=== PATIENT | female | born 1990 | race Caucasian/White ===

== ENCOUNTER 2018-02-21 12:33 | Emergency (ER) | payer SELFPAY ==
[~2018-02-21] VITALS: Ht 162.6 cm; Wt 77.1 kg
[2018-02-21] MEDS ORDERED: MORPHINE SULFATE 4 MG/ML SYR IV STA (12:50)
[2018-02-21] MEDS ORDERED: SODIUM CHLORIDE 0.9% 1000ML 1,000 ML IV STA (12:50)
[2018-02-21] MEDS ORDERED: ONDANSETRON HCL 4 MG ORAL DISINTEGRATING TAB PO ONE (13:00)
[2018-02-21 13:02] LABS: BASOPHILS # (AUTO) 0.1 (0.0-0.1); BASOPHILS % 0.6 % (0.0-1.0); EOSINOPHILS # (AUTO) 0.2 (0.0-0.4); EOSINOPHILS % 1.9 % (0.0-6.0); HEMATOCRIT 41.3 % (34.2-44.1); HEMOGLOBIN 14.4 g/dL (12.0-16.0); LYMPHOCYTES # (AUTO) 2.1 (1.0-3.2); LYMPHOCYTES % 25.5 % (18.0-39.1); MEAN CORPUSCULAR HEMOGLOBIN 30.2 pg (28-32); MEAN CORPUSCULAR HGB CONC 34.9 g/dL (31-35); MEAN CORPUSCULAR VOLUME 86.6 fL (81-99); MONOCYTES # (AUTO) 0.9 (0.2-0.8); MONOCYTES % 10.4 % (4.4-11.3); NEUTROPHILS # (AUTO) 5.1 (2.1-6.9); NEUTROPHILS % 61.2 % (38.7-80.0); PLATELET COUNT 232 x10e3/uL (140-360); RED BLOOD COUNT 4.77 x10e6/uL (3.6-5.1); RED CELL DISTRIBUTION WIDTH 12.8 % (11.7-14.4)
[2018-02-21] MEDS ORDERED: MORPHINE SULFATE 2 MG/ML SYR ONE (13:06)
[2018-02-21 13:10] LABS: INR 1.1; PROTHROMBIN TIME 13.4 seconds (11.9-14.5)
[2018-02-21 13:11] LABS: PARTIAL THROMBOPLASTIN TIME 28.9 seconds (23.8-35.5)
[2018-02-21 13:20] LABS: ALANINE AMINOTRANSFERASE 9 IU/L (0-55); ALBUMIN 4.2 g/dL (3.5-5.0); ALBUMIN/GLOBULIN RATIO 1.2 (0.8-2.0); ALKALINE PHOSPHATASE 78 IU/L (40-150); AMYLASE 32 U/L (25-125); ANION GAP 14.1 mmol/L (8-16); BLOOD UREA NITROGEN 8 mg/dL (7-26); BUN/CREATININE RATIO 10 (6-25); CALCIUM 9.8 mg/dL (8.4-10.2); CARBON DIOXIDE 24 mmol/L (22-29); CHLORIDE 105 mmol/L (98-107); CREATININE, SERUM 0.83 mg/dL (0.57-1.11); EST GLOMERULAR FILTRATION RATE > 60 ML/MIN (60-); GLUCOSE 92 mg/dL (74-118); LIPASE 14 U/L (8-78); POTASSIUM 4.1 mmol/L (3.5-5.1); SODIUM 139 mmol/L (136-145)
[2018-02-21 13:26] LABS: HCG,QUANTITATIVE < 1.20 mIU/mL (0-10)
[2018-02-21] MEDS ORDERED: HYDROMORPHONE 1MG/1ML INJ IV STA (13:40)
[2018-02-21] MEDS ORDERED: HYDROMORPHONE 2MG/ML INJ IV ONE (13:45)
--- NOTE | 2018-02-21 15:03 | Diagnostic Imaging Report ---
EXAM: Transabdominal and Transvaginal Pelvic Ultrasound with Duplex INDICATION: Left lower quadrant pain. COMPARISON: None TECHNIQUE: Grayscale transverse and sagittal transabdominal and transvaginal images were obtained of the pelvis. Transvaginal imaging was medically necessary to better evaluate the endometrium and the adnexa. The ovaries were examined with grayscale, color Doppler, and spectral waveform analysis. CLINICAL HISTORY: 27 year old A2; last menstrual period: 01/16/2018. FINDINGS: Uterus Orientation: Normal Size: 7.1 x 3.3 x 5.1 cm, normal Mass: None Cervix: Nabothian cyst measuring 0.8 cm. Endometrium: Thickness: 0.6 cm, Normal. Appearance: Homogeneous echotexture without focal thickening. Right ovary: Size: 2.7 x 2 x 1.9 cm Mass/Cyst: None Vascularity: Normal venous and arterial color flow and waveforms. Left ovary: Size: 3 x 1.7 x 1.4 cm Mass/Cyst: None Vascularity: Normal venous and arterial color flow and waveforms. Adnexa: Normal Cul-de-sac: No free fluid IMPRESSION: 1. Unremarkable pelvic ultrasound. 2. If the test is positive, differentials include early , ectopic , and miscarriage. Recommend correlation with serial beta hCG and if indicated short-term follow-up ultrasound. Signed by: Dr. Idris Roberson MD on 02/21/2018 3:00 PM
[2018-02-21] MEDS ORDERED: KETOROLAC TROMETHAMINE 30 MG/ML VIAL IV STA (15:07)
[2018-02-21] MEDS ORDERED: DIATRIZOATE MEGL/DIATRIZOA SOD 30 ML BTL PO ONE (15:13)
[2018-02-21] MEDS ORDERED: HYDROMORPHONE 1MG/1ML INJ IV PRN (16:45)
[2018-02-21 16:57] LABS: CLARITY,URINE SL CLOUDY (CLEAR); COLOR,URINE STRAW (YELLOW); LEUKOCYTE ESTERASE ,URINE NEGATIVE (NEGATIVE); NITRITE,URINE NEGATIVE (NEGATIVE); PROTEIN,URINE DIPSTICK 1+ (NEGATIVE)
[2018-02-21 16:58] LABS: BILIRUBIN,URINE 2+ (NEGATIVE); KETONES,URINE 2+ (NEGATIVE); URINE UROBILINOGEN 1 mg/dL (0.2 - 1)
[2018-02-21] MEDS ORDERED: HYDROMORPHONE 2MG/ML INJ IV PRN (17:00)
--- NOTE | 2018-02-21 17:02 | Diagnostic Imaging Report ---
EXAM: CT Abdomen and Pelvis WITHOUT contrast INDICATION: \S\LLQ PAIN \[id number] \S\[id number] \S\N COMPARISON: Pelvic ultrasound performed on the same date. TECHNIQUE: Abdomen and pelvis were scanned utilizing a multidetector helical scanner from the lung base to the pubic symphysis without administration of IV contrast. Absence of intravenous contrast decreases sensitivity for detection of focal lesions and vascular pathology. Coronal and sagittal reformations were obtained. Renal stone protocol was performed. IV CONTRAST: None ORAL CONTRAST: Water COMPLICATIONS: None RADIATION DOSE: Total DLP: 412.50 mGy*cm Estimated effective dose: (DLP x 0.015 x size factor) mSv CTDIvol has been reviewed. It is below the limits set by the Radiation Protocol Committee (RPC). FINDINGS: LINES and TUBES: None. LOWER THORAX: Unremarkable HEPATOBILIARY: Hypodensity along the falciform ligament is probably focal fat deposition. Otherwise, unenhanced liver is unremarkable. No biliary ductal dilation. GALLBLADDER: No radio-opaque stones or sludge. No wall thickening. SPLEEN: No splenomegaly. PANCREAS: No focal masses or ductal dilatation. ADRENALS: No adrenal nodules KIDNEYS/URETERS: No hydronephrosis. No cystic or solid mass lesions. No stones. GI TRACT: No abnormal distention, wall thickening, or evidence of bowel obstruction. Appendix is normal. PELVIC ORGANS/BLADDER: Unremarkable. Tampon in place. Pelvic phleboliths. Bladder is under distended, limiting evaluation. LYMPH NODES: No lymphadenopathy. VESSELS: Unremarkable. PERITONEUM / RETROPERITONEUM: No free air or fluid. BONES: Unremarkable. SOFT TISSUES: Unremarkable. IMPRESSION: 1. No nephrolithiasis or evidence of obstructive urolithiasis. Signed by: Dr. Idris Roberson MD on 02/21/2018 4:59 PM
[2018-02-21 17:11] LABS: BACTERIA,URINE FEW /HPF; EPITHELIAL CELLS,URINE RARE /LPF; WBC,URINE (MAN) 0-5 /HPF (0-5)
[2018-02-21 17:12] LABS: AMORPHOUS SEDIMENT,URINE FEW (FEW); MUCUS,URINE FEW (RARE)
[2018-02-21 18:52] VITALS: BP 120/80
== END 2018-02-21 18:40 | disposition home or self-care (01) ==
LOC: ER 12:33
DX: R10.32 Left lower quadrant pain (principal)
CPT/HCPCS: 36415; 74176; 76830; 80053; 81001; 82150; 83690; 84702; 85025; 85610; 85730; 93976; 99284; J1170; J1885; J2270; J7030

== ENCOUNTER 2018-05-01 09:04 | Emergency (ER) | payer SELFPAY ==
[~2018-05-01] VITALS: Ht 162.6 cm; Wt 79.4 kg
[2018-05-01 10:01] LABS: CLARITY,URINE SL CLOUDY (CLEAR); COLOR,URINE YELLOW (YELLOW)
[2018-05-01 10:02] LABS: LEUKOCYTE ESTERASE ,URINE NEGATIVE (NEGATIVE); NITRITE,URINE NEGATIVE (NEGATIVE); PROTEIN,URINE DIPSTICK 2+ (NEGATIVE); URINE UROBILINOGEN 1 mg/dL (0.2 - 1)
[2018-05-01 10:03] LABS: BILIRUBIN,URINE 2+ (NEGATIVE); KETONES,URINE 2+ (NEGATIVE)
[2018-05-01 10:20] LABS: BACTERIA,URINE MODERATE /HPF; EPITHELIAL CELLS,URINE MODERATE /LPF; RBC,URINE >50 /HPF (0-5)
[2018-05-01 10:21] LABS: MUCUS,URINE FEW (RARE)
[2018-05-01 11:38] LABS: BASOPHILS % 0.4 % (0.0-1.0); EOSINOPHILS # (AUTO) 0.1 (0.0-0.4); EOSINOPHILS % 1.5 % (0.0-6.0); HEMATOCRIT 36.7 % (34.2-44.1); LYMPHOCYTES # (AUTO) 1.5 (1.0-3.2); LYMPHOCYTES % 16.1 % (18.0-39.1); MEAN CORPUSCULAR HEMOGLOBIN 30.4 pg (28-32); MEAN CORPUSCULAR HGB CONC 35.4 g/dL (31-35); MEAN CORPUSCULAR VOLUME 85.9 fL (81-99); MONOCYTES # (AUTO) 1.1 (0.2-0.8); MONOCYTES % 11.4 % (4.4-11.3); NEUTROPHILS # (AUTO) 6.4 (2.1-6.9); NEUTROPHILS % 70.2 % (38.7-80.0); PLATELET COUNT 182 x10e3/uL (140-360); RED BLOOD COUNT 4.27 x10e6/uL (3.6-5.1); RED CELL DISTRIBUTION WIDTH 12.5 % (11.7-14.4)
--- NOTE | 2018-05-01 11:49 | Diagnostic Imaging Report ---
EXAM: First Trimester Obstetric Pelvic Ultrasound INDICATION: \S\about 12 week abd pain, no care, look COMPARISON: None TECHNIQUE: Grayscale transverse and sagittal transabdominal and transvaginal images were obtained of the pelvis. Transvaginal imaging was medically necessary to better evaluate the endometrium, adnexa, and fetus. CLINICAL HISTORY: 27 year old A0 Last menstrual period: 02/20/2018 Clinical gestational age: 10 weeks 0 days EDC: 11/27/2018 FINDINGS: Uterus: Orientation: Normal Size: 6.5 x 5.2 x 7.1 cm, enlarged Mass: None Cervix: Normal Fetus #1: Separate placenta, chorion, and amniotic sac Gestational Sac: Location: Intrauterine Average sac diameter: 1.8 cm Estimated sonographic GA: 6 weeks 4 days Appearance: Normal in contour Subchorionic hemorrhage: None Yolk sac: Normal Embryo/Fetus: [place] rump length: 0.4 cm Estimated sonographic GA: 6 weeks 1 day Cardiac activity: 193 bpm Fetus #2: Separate placenta, chorion, and amniotic sac Gestational Sac: Location: Intrauterine Average sac diameter: 1.7 cm Estimated sonographic GA: 6 weeks 3 days Appearance: Normal in contour Subchorionic hemorrhage: None Yolk sac: Normal Embryo/Fetus: [place] rump length: 0.4 cm Estimated sonographic GA: 6 weeks 1 day Cardiac activity: 192 bpm Right ovary Not visualized Left ovary Size: 3.0 x 2.6 x 2.6 cm Mass/Cyst: 0.8 x 0.6 x 0.5 cm anechoic cyst, likely the corpus luteum. Minimal peripheral flow. Cul-de-sac: No free fluid IMPRESSION: 1. Viable intrauterine TWIN : Routine followup. Likely dichorionic diamniotic twin . Recommend follow-up in high-risk OB. 2. Estimated sonographic gestational age: 6 weeks 1 day based on crown-rump length. ALICE 12/22/2018 for both fetus. CLASSIFICATION Viable: can potentially result in a liveborn baby Visualized embryo with FHT Nonviable: Findings diagnostic of failure * Ectopic * CRL >= 7 mm and no FHT * MSD >= 25 mm and no embryo * No FHT >= 2 weeks after US showed GS w/o YS * No FHT >= 11 days after US showed GS w/ YS Intrauterine of uncertain viability: Intrauterine GS with no FHT and no definite findings of failure of unknown location: Positive urine or serum test and no IUP or ectopic on US Diagnostic Criteria for Nonviable Early in the First Trimester N Engl J Med 2013;369:1443-51. DOI: [id number] Signed by: Dr. Abraham Romero M.D. on 05/01/2018 11:45 AM
[2018-05-01 11:55] LABS: ALANINE AMINOTRANSFERASE 8 IU/L (0-55); ALBUMIN 3.8 g/dL (3.5-5.0); ALBUMIN/GLOBULIN RATIO 1.4 (0.8-2.0); ALKALINE PHOSPHATASE 52 IU/L (40-150); AMYLASE 34 U/L (25-125); ANION GAP 11.7 mmol/L (8-16); BLOOD UREA NITROGEN 6 mg/dL (7-26); BUN/CREATININE RATIO 9 (6-25); CALCIUM 8.9 mg/dL (8.4-10.2); CARBON DIOXIDE 21 mmol/L (22-29); CHLORIDE 107 mmol/L (98-107); CREATININE, SERUM 0.68 mg/dL (0.57-1.11); EST GLOMERULAR FILTRATION RATE > 60 ML/MIN (60-); GLUCOSE 93 mg/dL (74-118); LIPASE 14 U/L (8-78); POTASSIUM 3.7 mmol/L (3.5-5.1); SODIUM 136 mmol/L (136-145)
[2018-05-01 12:46] VITALS: BP 129/84
== END 2018-05-01 12:47 | disposition home or self-care (01) ==
LOC: ER 09:07
DX: O30.041 Twin pregnancy, dichorionic/diamniotic, first trimester (principal); O23.11 Infections of bladder in pregnancy, first trimester; N30.91 Cystitis, unspecified with hematuria; R10.11 Right upper quadrant pain
CPT/HCPCS: 36415; 76802; 80053; 81001; 81025; 82150; 83690; 84702; 85025; 86900; 99284

== ENCOUNTER 2019-04-28 10:34 | Emergency (ER) | payer MEDICARE ==
[~2019-04-28] VITALS: Ht 162.6 cm; Wt 79.4 kg
[2019-04-28] MEDS ORDERED: SODIUM CHLORIDE 0.9% 1000ML 1,000 ML IV STA ×2 (10:38)
[2019-04-28] MEDS ORDERED: ONDANSETRON HCL INJ 2MG/ML 2ML 2 MG/ML VIAL IV ONE (11:00)
[2019-04-28] MEDS ORDERED: MORPHINE SULFATE INJ 4 MG/ML INJ 1ML ONE (11:30)
[2019-04-28 11:38] LABS: BASOPHILS % 0.4 % (0.0-1.0); EOSINOPHILS # (AUTO) 0.2 (0.0-0.4); EOSINOPHILS % 1.7 % (0.0-6.0); HEMATOCRIT 39.6 % (34.2-44.1); HEMOGLOBIN 13.6 g/dL (12.0-16.0); LYMPHOCYTES # (AUTO) 1.3 (1.0-3.2); LYMPHOCYTES % 13.1 % (18.0-39.1); MEAN CORPUSCULAR HEMOGLOBIN 29.5 pg (28-32); MEAN CORPUSCULAR HGB CONC 34.3 g/dL (31-35); MEAN CORPUSCULAR VOLUME 85.9 fL (81-99); MONOCYTES # (AUTO) 0.9 (0.2-0.8); NEUTROPHILS # (AUTO) 7.2 (2.1-6.9); NEUTROPHILS % 75.2 % (38.7-80.0); PLATELET COUNT 173 x10e3/uL (140-360); RED BLOOD COUNT 4.61 x10e6/uL (3.6-5.1); RED CELL DISTRIBUTION WIDTH 12.7 % (11.7-14.4)
[2019-04-28 11:51] LABS: ALANINE AMINOTRANSFERASE 11 IU/L (0-55); ALBUMIN 3.9 g/dL (3.5-5.0); ALBUMIN/GLOBULIN RATIO 1.3 (0.8-2.0); ALKALINE PHOSPHATASE 63 IU/L (40-150); ANION GAP 12.8 mmol/L (8-16); BLOOD UREA NITROGEN 6 mg/dL (7-26); BUN/CREATININE RATIO 8 (6-25); CALCIUM 9.2 mg/dL (8.4-10.2); CARBON DIOXIDE 21 mmol/L (22-29); CHLORIDE 106 mmol/L (98-107); CREATININE, SERUM 0.72 mg/dL (0.57-1.11); EST GLOMERULAR FILTRATION RATE > 60 ML/MIN (60-); GLUCOSE 92 mg/dL (74-118); POTASSIUM 3.8 mmol/L (3.5-5.1); SODIUM 136 mmol/L (136-145)
[2019-04-28] MEDS ORDERED: MORPHINE SULFATE INJ 4 MG/ML INJ 1ML IV ONE (12:00)
[2019-04-28 12:38] LABS: HCG,QUANTITATIVE 78567.28 mIU/mL (0-10)
--- NOTE | 2019-04-28 13:07 | Diagnostic Imaging Report ---
Pelvic OB ultrasound -1st trimester. History: Evaluation of . Last menstrual period 02/15/2019. Previous US: None. Findings: There is intrauterine . A yolk sac and pole are seen. The crown-rump length is 2.64 cm. A heart rate is identified, measuring 159 bpm. The estimated gestational age is 9 weeks, 3 days. The uterus measures 8.6 x 7.1 x 7.6 cm. Both ovaries are unremarkable in appearance. The right ovary measures 2.8 x 1.4 x 1.6 cm and the left ovary measures 2.7 x 3.0 x 2.5 cm. No pelvic fluid identified. IMPRESSION: Single, live intrauterine estimated 9 weeks, 3 days. Signed by: Dr. Hilario Coleman MD on 04/28/2019 1:03 PM
[2019-04-28 13:49] LABS: BILIRUBIN,URINE NEGATIVE (NEGATIVE); CLARITY,URINE CLOUDY (CLEAR); COLOR,URINE YELLOW (YELLOW); KETONES,URINE NEGATIVE (NEGATIVE); LEUKOCYTE ESTERASE ,URINE NEGATIVE (NEGATIVE); NITRITE,URINE NEGATIVE (NEGATIVE); PROTEIN,URINE DIPSTICK TRACE (NEGATIVE); URINE UROBILINOGEN 0.2 mg/dL (0.2 - 1)
[2019-04-28 14:02] LABS: BACTERIA,URINE MANY /HPF; EPITHELIAL CELLS,URINE RARE /LPF
[2019-04-28 14:35] VITALS: BP 101/58
== END 2019-04-28 14:42 | disposition home or self-care (01) ==
LOC: ER 10:46
DX: O21.1 Hyperemesis gravidarum with metabolic disturbance (principal); Z3A.21 21 weeks gestation of pregnancy; R10.31 Right lower quadrant pain; E86.9 Volume depletion, unspecified
CPT/HCPCS: 36415; 76817; 80053; 81001; 81025; 83690; 84702; 85025; 86850; 86900; 99284; J2270; J2405; J7030